=== PATIENT | female | born 1985 | race African-American/Black ===

== ENCOUNTER 2017-03-15 08:14 | Inpatient (IN) | payer BC ==
[2017-02-27 13:11] VITALS: BMI 23.6
[2017-03-15] MEDS ORDERED: PROPOFOL 20 ML ONE (10:42)
[2017-03-15] MEDS ORDERED: ROCURONIUM BROMIDE 50 MG/5 ML VIAL ONE (10:43)
[2017-03-15] MEDS ORDERED: LIDOCAINE HCL/PF 2% SDV 5ML VIAL ONE (10:43)
[2017-03-15] MEDS ORDERED: MIDAZOLAM HCL 2 MG/2 ML SINGLE DOSE VIAL ONE (11:23)
[2017-03-15] MEDS ORDERED: BUPIVACAINE HCL/PF 2.5 MG/ML - 30 ML VIAL IJ ONE (11:23)
[2017-03-15] MEDS ORDERED: DEXAMETHASONE SOD PHOSPHATE/PF 10 MG/ML SDV ONE (11:23)
[2017-03-15] MEDS ORDERED: ONDANSETRON 4 MG/2 ML VIAL ONE ×2 (12:48→13:09)
[2017-03-15] MEDS ORDERED: DEXAMETHASONE SOD PHOSPHATE 4 MG/1 ML VIAL ONE ×2 (12:48→13:09)
[2017-03-15] MEDS ORDERED: ceFAZolin SODIUM 1 GM VIAL ONE (12:56)
[2017-03-15] MEDS ORDERED: GLYCOPYRROLATE 0.2 MG/1 ML VIAL ONE (13:09)
[2017-03-15] MEDS ORDERED: NEOSTIGMINE METHYLSULFATE 0.5 MG/ML - 10 ML MDV ONE (13:09)
[2017-03-15] MEDS ORDERED: KETOROLAC TROMETHAMINE 30 MG/1 ML VIAL ONE (13:09)
[2017-03-15] MEDS ORDERED: ACETAMINOPHEN 325 MG TABLET (FP) PO PRN (14:37)
[2017-03-15] MEDS ORDERED: morphine CARPU-JECT 4 MG/1 ML DISP.SYRIN IVPB PRN (14:37)
[2017-03-15] MEDS ORDERED: ONDANSETRON 4 MG/2 ML VIAL IVPB PRN (14:37)
[2017-03-15] MEDS ORDERED: IBUPROFEN 800 MG/8 ML IJ IVPB PRN (14:40)
[2017-03-15] MEDS ORDERED: HYDROmorphone HCL CARPU-JECT 1 MG/1 ML DISP.SYRIN IVPUSH PRN (14:45)
[2017-03-15] MEDS ORDERED: D5-1/2NS+20 MEQ KCL - 1,000 ML IV SCH (14:45)
[2017-03-15] MEDS ORDERED: LACTATED RINGERS SOLUTION 1,000 ML IV SCH (14:45)
--- NOTE | 2017-03-15 14:46 | OP ---
DATE OF OPERATION: 03/15/2017 PREOPERATIVE DIAGNOSIS: Chronically incarcerated ventral hernia. POSTOPERATIVE DIAGNOSIS: Chronically incarcerated ventral hernia. PROCEDURE: Open repair of complex chronically incarcerated ventral hernia, with mesh, open bilateral component separation. SURGEON: Sebastián Martinez MD FLOOR SANDER: Shawn Cameron MD ANESTHESIA: Daisy Youngblood MD (general). ESTIMATED BLOOD LOSS: Minimal. SPECIMEN: None. INDICATION FOR PROCEDURE: This is a 31-year-old female who has mild abdominal discomfort at times in the midabdomen. She was noted to have a chronically incarcerated complex hernia. The thought is that the discomfort she experiences is related to her hernia. She now wished to have this repaired. DESCRIPTION OF PROCEDURE: Patient identified and appropriately positioned on the operating room table. After placement of general anesthesia, the abdomen prepped and draped in the usual sterile fashion with ChloraPrep. A midline incision was made, deepened through the subcutaneous tissue. The hernia identified, dissected free from the subcutaneous tissue down to the level of the fascia. The hernia was then circumferentially at the fascial level. Laterally, the rectus muscles fascia was scored and the muscle identified and using blunt dissection the rectus muscle on the patient's right side was off the posterior sheath. This was done approximately 4 to 5 cm above and below the actual defect. The dissection was carried out laterally to the perforating vessels. The fascia just medial to the perforating vessels was scored and the transversus was and released from the remaining junction of the obliques and the rectus muscle. This was done again for the length of the incision. Medially, the midline separation was divided in a similar fashion. The posterior rectus space on the left was entered in a similar fashion. The left rectus fascia was scored, the muscle identified and split, and the dissection of the rectus off the muscle was done bluntly out toward the perforating vessels. Just medial to the perforating vessels, the fascia of the transversus was divided with the cautery. This was taken up 4 to 5 cm above and below the actual defect. This allowed separation of the transversus from the obliques junction and the rectus junction. Next, the reason that the bilateral component separation had to be performed was the fact that this patient had a generous defect. The actual defect was over 6 cm in diameter. A 15 x 15 piece of ProGrip along with a 10 x 15 piece of OviTex mesh was used for the operative repair. The 2 pieces of mesh were sewn together with interrupted 3-0 Vicryl suture. The ProGrip and OviTex mesh was placed in the subrectus space. The OviTex was on the peritoneal side and the ProGrip was on the submuscular side of the rectus. The mesh was fanned out and then placed in appropriately under the proper tension. The mesh was then anchored with interrupted absorbable ReliaTack sutures. The mesh irrigated with saline. The operative field examined and noted to be hemostatic. The midline fascia was then reapproximated with interrupted 0 PDS sutures placed 5 mm apart from each other and 5 mm back. Thought was given to placement of a J-P. However, I decided not to due to the fact that she did not have big flaps mobilized. The dermis was reapproximated with interrupted inverted 3-0 Vicryl suture and the skin closed with a running 4-0 subcuticular Biosyn followed by Dermabond. At the conclusion of the case, sponge and needle counts were correct. ATTESTATION: Brief operative note handwritten on the preprinted form. [facility] queried prior to giving any narcotics. SEBASTIÁN MARTINEZ M.D. [id number]
[2017-03-15] MEDS ORDERED: traMADol HCL 50 MG TABLET PO PRN (14:48)
[2017-03-15] MEDS ORDERED: traMADol HCL 50 MG TABLET ONE (14:49)
[2017-03-15] MEDS ORDERED: traMADol HCL 50 MG TABLET PO ONE (14:55)
[2017-03-15] MEDS: oxyCODONE HCL 5 MG TABLET PO PRN ×2 (18:06→23:02)
[2017-03-16] MEDS: oxyCODONE HCL 5 MG TABLET PO PRN (08:48)
[2017-03-16] MEDS ORDERED: PANTOPRAZOLE SODIUM 100 ML IVPB SCH (10:00)
[2017-03-16] MEDS ORDERED: ENOXAPARIN NA (PORCINE) 40 MG/0.4 ML DISP.SYRIN SQ SCH (10:00)
[2017-03-16 10:35] VITALS: BP 108/64; PULSE 51; TEMP 98.1
== END 2017-03-16 13:45 | disposition home or self-care (01) | DRG 355 ==
LOC: FASU 08:14 → FM/S 15:58
PROVIDERS: ADMIT Surgery; ATTEND Surgery
PROC: 0WUF0JZ Supplement Abdominal Wall with Synthetic Substitute, Open Approach (ICD-10-PCS; principal; 2017-03-15 12:46)
DX: K43.6 Other and unspecified ventral hernia with obstruction, without gangrene (principal)
CPT/HCPCS: 84703; 94010; 94760